=== PATIENT | male | born 1970 | race Caucasian/White ===

== ENCOUNTER 2016-08-15 07:54 | Outpatient (CLI) ==
[2015-03-03 20:16] VITALS: BMI 29.7
[2016-08-16 06:10] LABS: TESTOSTERONE 296 ng/dL (348-1197)
[2016-08-17 09:24] LABS: FREE TESTOSTERONE 2.9 pg/mL (6.8-21.5)
== END 2016-08-15 07:55 | disposition home or self-care (01) ==
LOC: LAB 07:54
PROVIDERS: ATTEND Nurse Practitioner
DX: G47.33 Obstructive sleep apnea (adult) (pediatric) (principal); M62.89 Other specified disorders of muscle; R53.83 Other fatigue; Z99.89 Dependence on other enabling machines and devices
CPT/HCPCS: 36415; 84402; 84403

== ENCOUNTER 2016-09-13 18:25 | Outpatient (CLI) ==
[2015-03-03 20:16] VITALS: BMI 29.7
[2016-09-13 18:57] LABS: BASOPHILS # (AUTO) 0.1 K/uL (0-0.2); BASOPHILS % (AUTO) 1.2 % (0.0-3.0); EOSINOPHILS # (AUTO) 0.4 K/ul (0.0-0.7); EOSINOPHILS % (AUTO) 8.9 % (0.0-7.0); HEMATOCRIT 35.3 % (42.0-52.0); HEMOGLOBIN 11.9 g/dl (14.0-18.0); IMMATURE GRANULOCYTE % (AUTO) 0.6 % (0.0-5.0); LYMPHOCYTES # (AUTO) 1.7 K/uL (0.60-3.4); LYMPHOCYTES % (AUTO) 35.5 (10.0-50.0); MEAN CORPUSCULAR HEMOGLOBIN 31.2 pg (27.0-31.0); MEAN CORPUSCULAR HGB CONC 33.7 (31.8-35.4); MEAN CORPUSCULAR VOLUME 92.7 fl (80.0-94.0); MONOCYTES # (AUTO) 0.5 K/uL (0.4-2.0); MONOCYTES % (AUTO) 10.5 (0-10); NEUTROPHILS # (AUTO) 2.1 K/ul (2.0-6.9); NEUTROPHILS % (AUTO) 43.3; PLATELET COUNT 220 10^3/uL (140-440); RED BLOOD COUNT 3.81 10^6/ul (4.70-6.10); WHITE BLOOD COUNT 4.85 K/ul (4.2-10.2)
[2016-09-13 18:58] LABS: BILIRUBIN,URINE Negative (NEGATIVE); KETONES,URINE Negative (NEGATIVE); LEUKOCYTE ESTERASE ,URINE Negative (NEGATIVE); NITRITE,URINE Negative (NEGATIVE); PROTEIN,URINE Trace (NEGATIVE); URINE, BLOOD Trace-intact (NEGATIVE)
[2016-09-13 19:05] LABS: ADD URINE MICROSCOPIC YES
[2016-09-13 20:01] LABS: ALBUMIN 4.1 g/dL (3.4-5.0); ALBUMIN/GLOBULIN RATIO 1.11; ANION GAP 16.4; BILIRUBIN,TOTAL 0.27 mg/dL (0.00-1.20); BUN/CREATININE RATIO 17.82; CALCIUM 10.4 mg/dL (8.2-10.2); CREATININE 2.02 mg/dL (0.60-1.10); MAGNESIUM 2.1 mg/dL (1.7-2.2); PHOSPHORUS 4.2 mg/dL (2.5-4.9); POTASSIUM 4.4 mmol/L (3.5-5.1); TOTAL PROTEIN 7.8 g/dL (6.4-8.2); URIC ACID 6.1 mg/dL (2.6-7.2)
[2016-09-15 06:11] LABS: FOLLICLE STIMULATING HORMONE 11.1 mIU/mL (1.5-12.4); LUTEINIZING HORMONE 6.7 mIU/mL (1.7-8.6); URINE CREATINE 22.8 mg/dL (Not Estab.); URINE PROTEIN/CREATININE RATIO 785 mg/g creat (0-200)
[2016-09-18 09:24] LABS: ESTRADIOL 25.6 pg/mL (7.6-42.6)
== END 2016-09-13 18:26 | disposition home or self-care (01) ==
LOC: LAB 18:25
PROVIDERS: ATTEND Internal Medicine Nephrology
DX: N18.3 Chronic kidney disease, stage 3 (moderate) (principal); E55.9 Vitamin D deficiency, unspecified; E29.1 Testicular hypofunction
CPT/HCPCS: 36415; 80053; 81001; 82306; 82570; 82670; 83001; 83002; 83735; 83970; 84100; 84156; 84550; 85025

== ENCOUNTER 2016-10-02 09:53 | Outpatient (CLI) ==
[2015-03-03 20:16] VITALS: BMI 29.7
[2016-10-03 06:11] LABS: TESTOSTERONE 145 ng/dL (348-1197)
[2016-10-06 09:44] LABS: FREE TESTOSTERONE 1.7 pg/mL (6.8-21.5)
== END 2016-10-02 09:54 | disposition home or self-care (01) ==
LOC: LAB 09:53
PROVIDERS: ATTEND Nurse Practitioner
DX: E29.1 Testicular hypofunction (principal)
CPT/HCPCS: 36415; 84402; 84403

== ENCOUNTER 2016-11-20 08:16 | Outpatient (CLI) ==
[2015-03-03 20:16] VITALS: BMI 29.7
[2016-11-21 06:12] LABS: TESTOSTERONE 517 ng/dL (348-1197)
[2016-11-21 07:16] LABS: PROLACTIN 13.3 ng/mL (4.0-15.2)
[2016-11-22 07:11] LABS: ACTH 17.2 pg/mL (7.2-63.3); FREE TESTOSTERONE 8.9 pg/mL (6.8-21.5)
== END 2016-11-20 08:17 | disposition home or self-care (01) ==
LOC: LAB 08:16
PROVIDERS: ATTEND Nurse Practitioner
DX: E29.1 Testicular hypofunction (principal); E23.0 Hypopituitarism
CPT/HCPCS: 36415; 82024; 82533; 84146; 84402; 84403; 84439; 84443

== ENCOUNTER 2017-02-16 08:07 | Outpatient (CLI) ==
[2015-03-03 20:16] VITALS: BMI 29.7
[2017-02-17 07:16] LABS: TESTOSTERONE 791 ng/dL (348-1197)
[2017-02-18 19:57] LABS: ACTH 33.9 pg/mL (7.2-63.3); FREE TESTOSTERONE 16.5 pg/mL (6.8-21.5)
== END 2017-02-16 08:08 | disposition home or self-care (01) ==
LOC: LAB 08:07
PROVIDERS: ATTEND Nurse Practitioner
DX: E27.40 Unspecified adrenocortical insufficiency (principal); E29.1 Testicular hypofunction; R53.83 Other fatigue
CPT/HCPCS: 36415; 82024; 82533; 84402; 84403